=== PATIENT | female | born 1975 | race Caucasian/White ===

== ENCOUNTER 2019-07-14 22:46 | Emergency (ER) | payer MEDICAID ==
[~2019-07-14] VITALS: Ht 162.6 cm; Wt 90.7 kg
--- NOTE | 2019-07-14 23:00 | NUR ---
BIB FAMILY W/ C/O L LOWER DORAN/ ANKLE PAIN. - TRAUMA, - FALL. + MILD EDEMA. + PMH OF SCIATICA. PER PT PAIN RADIATES ALL THE WAY UP TO THE L HIP WHEN HE IS SLEEPING.
[2019-07-14] MEDS ORDERED: IBUPROFEN 600 MG TABLET PO ONE ×2 (23:22→23:30)
--- NOTE | 2019-07-15 00:14 | NUR ---
PA AT THE BED SIDE FOR RE- EVAL. SPEAKING TO THE PT AND THE SON
[2019-07-15] MEDS ORDERED: DEXAMETHASONE SOD PHOSPHATE 10 MG/ML VIAL ONE (00:24)
[2019-07-15] MEDS ORDERED: DEXAMETHASONE SOD PHOSPHATE 10 MG/ML VIAL IM ONE (00:30)
--- NOTE | 2019-07-15 00:33 | NUR ---
Patient discharged to home in stable condition. Rx and Written and verbal after care instructions given. Patient verbalizes understanding of instruction.
[2019-07-15 00:34] VITALS: BP 148/79
== END 2019-07-15 00:35 | disposition home or self-care (01) ==
LOC: ER 22:48
DX: M54.42 Lumbago with sciatica, left side (principal); M79.672 Pain in left foot; F17.200 Nicotine dependence, unspecified, uncomplicated
CPT/HCPCS: 73630; 96372; 99283; J1100